=== PATIENT | female | born 1955 | race Caucasian/White ===

== ENCOUNTER 2017-08-16 11:12 | Emergency (ER) | payer OTHER | END 2017-08-16 13:10 | disposition home or self-care (01) | LOC: FTE 11:12 | DX: S80.01XA Contusion of right knee, initial encounter (principal); S80.212A Abrasion, left knee, initial encounter; M25.461 Effusion, right knee; S00.83XA Contusion of other part of head, initial encounter; S00.531A Contusion of lip, initial encounter; E03.9 Hypothyroidism, unspecified; W01.0XXA Fall on same level from slipping, tripping and stumbling without subsequent striking against object, initial encounter; Y92.9 Unspecified place or not applicable | CPT/HCPCS: 73562; 99283-25 ==

== ENCOUNTER 2017-10-03 11:40 | Emergency (ER) | payer OTHER | END 2017-10-03 12:09 | disposition home or self-care (01) | LOC: FTE 11:40 | DX: B86 Scabies (principal); E03.9 Hypothyroidism, unspecified | CPT/HCPCS: 99283; Z7502 ==

== ENCOUNTER 2017-10-04 11:36 | Emergency (ER) | payer OTHER | END 2017-10-04 12:41 | disposition home or self-care (01) | LOC: E/R 11:36 | DX: B86 Scabies (principal); E03.9 Hypothyroidism, unspecified | CPT/HCPCS: 99282; Z7502 ==

== ENCOUNTER 2017-10-25 12:20 | Emergency (ER) | payer OTHER | END 2017-10-25 13:47 | disposition home or self-care (01) | LOC: FTE 12:20 | DX: R21 Rash and other nonspecific skin eruption (principal); E03.9 Hypothyroidism, unspecified | CPT/HCPCS: 99283; Z7502 ==

== ENCOUNTER 2017-12-17 16:00 | Emergency (ER) | payer SELFPAY, OTHER | END 2017-12-17 16:39 | disposition left against medical advice (07) | LOC: E/R 16:00 | DX: Z53.21 Procedure and treatment not carried out due to patient leaving prior to being seen by health care provider (principal) ==

== ENCOUNTER 2017-12-19 12:09 | Emergency (ER) | payer OTHER ==
[2017-12-19] MEDS: IBUPROFEN 200 MG TAB PO (13:48)
== END 2017-12-19 15:00 | disposition home or self-care (01) ==
LOC: FTE 12:09
DX: S20.219A Contusion of unspecified front wall of thorax, initial encounter (principal); E03.9 Hypothyroidism, unspecified; W01.198A Fall on same level from slipping, tripping and stumbling with subsequent striking against other object, initial encounter; Y92.9 Unspecified place or not applicable
CPT/HCPCS: 71045; 71120; 99283-25

== ENCOUNTER 2018-03-31 12:07 | Emergency (ER) | payer OTHER ==
[2018-03-31] MEDS: ACETAMINOPHEN 500 MG TAB PO (13:10)
== END 2018-03-31 16:02 | disposition home or self-care (01) ==
LOC: FTE 12:07
DX: S62.647A Nondisplaced fracture of proximal phalanx of left little finger, initial encounter for closed fracture (principal); E03.9 Hypothyroidism, unspecified; S01.511A Laceration without foreign body of lip, initial encounter; W01.0XXA Fall on same level from slipping, tripping and stumbling without subsequent striking against object, initial encounter; Y92.410 Unspecified street and highway as the place of occurrence of the external cause
CPT/HCPCS: 73140; 99283-25